=== PATIENT | male | born 1995 | race Caucasian/White ===

== ENCOUNTER 2016-11-27 18:22 | Emergency (ER) | payer BC ==
[~2016-11-27 18:22] MED LIST: ALBUTEROL SULF8.5 GM IH; FLEXERIL10 MG PO; GABAPENTIN300 M1 PO; IBUPROFEN600 M1 PO; IBUPROFEN800 M1 PO; MELOXICAM7.5 M1 PO; MOTRIN800 MG PO; MUCINEX600 M1 PO; NORCO 5/3251 TA1 PO; TRAMADOL HCL50 M2 PO
== END 2016-11-27 21:06 ==
LOC: EDMED 18:22
DX: J06.9 Acute upper respiratory infection, unspecified (principal); Z90.89 Acquired absence of other organs
CPT/HCPCS: J1885